=== PATIENT | male | born 1940 ===

== ENCOUNTER 2017-05-01 19:37 | Outpatient (CLI) | payer MEDICARE ==
[2017-05-01 19:52] LABS: Anion Gap 20 mmol/L (10-20); BUN (Urea Nitrogen) 37 mg/dL (8.4-25.7); Calc. Creatinine Clearance 0 mL/min (70-130); Calcium 8.4 mg/dL (7.8-10.44); Carbon Dioxide 18 mmol/L (23-31); Chloride 107 mmol/L (98-107); Estimated GFR-MDRD 20; Glucose 104 mg/dL (83-110); Potassium 4.2 mmol/L (3.5-5.1); Sodium 141 mmol/L (136-145)
== END 2017-05-01 19:38 | disposition home or self-care (01) ==
LOC: MADLAB 19:37
PROVIDERS: ATTEND Internal Medicine Nephrology
DX: N17.9 Acute kidney failure, unspecified (principal)
CPT/HCPCS: 80048

== ENCOUNTER 2017-08-08 13:49 | Outpatient (CLI) | payer MEDICARE | END 2017-08-08 13:50 | disposition home or self-care (01) | LOC: MADLAB 13:49 | PROVIDERS: ATTEND Internal Medicine Nephrology | DX: Z51.81 Encounter for therapeutic drug level monitoring (principal); Z79.899 Other long term (current) drug therapy | CPT/HCPCS: 84443 ==